=== PATIENT | male | born 1990 | race Caucasian/White ===

== ENCOUNTER 2016-12-09 23:32 | Emergency (ER) | payer SELFPAY ==
[2016-12-10 00:15] LABS: Hematocrit 45 % (42-52); Mean Corpuscular HGB Conc 33 g/dl (31-36); Mean Corpuscular Hemoglobin 31 pg (27-31); Mean Corpuscular Volume 94 fL (80-94); Mean Platelet Volume 7 um3 (7.4-10.4); Red Blood Count 4.79 10^6/ul (4.0-5.4); Red Cell Distribution Width 13 % (10.5-15); White Blood Count 8.2 10^3/ul (3.5-10.8)
[2016-12-10 00:29] LABS: ALT 21 U/L (7-52); Albumin 4.2 g/dL (3.2-5.2); Alkaline Phosphatase 35 U/L (34-104); Blood Urea Nitrogen 11 mg/dL (6-24); CO2 Carbon Dioxide 25 mmol/L (22-32); Calcium 9.2 mg/dL (8.6-10.3); Chloride 106 mmol/L (101-111); EGFR African American 103.3 (>60); EGFR Non-African American 80.3 (>60); Glucose 151 mg/dL (70-100); Sodium 140 mmol/L (133-145); Total Protein 7.2 g/dL (6.4-8.9)
[2016-12-10 00:41] LABS: Acetaminophen < 15 mcg/mL; Alcohol 23 mg/dL (<10); Salicylate < 2.50 mg/dL (<30)
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
[2016-12-10 00:57] LABS: Anion Gap 9 mmol/L (2-11)
[2016-12-10 01:07] VITALS: BP 136/67
== END 2016-12-10 01:10 ==
LOC: ED 23:32
DX: T40.5X1A Poisoning by cocaine, accidental (unintentional), initial encounter (principal); T40.7X1A Poisoning by cannabis (derivatives), accidental (unintentional), initial encounter; T51.91XA Toxic effect of unspecified alcohol, accidental (unintentional), initial encounter; Y92.9 Unspecified place or not applicable; F17.210 Nicotine dependence, cigarettes, uncomplicated; V89.2XXA Person injured in unspecified motor-vehicle accident, traffic, initial encounter; Y93.9 Activity, unspecified
CPT/HCPCS: 36415; 80053; 80320; 80329; 85025; 99283; G0480

== ENCOUNTER 2020-01-26 23:01 | Inpatient (IN) ==
[2020-01-27] MEDS ORDERED: NS 0.9% 1000 ml BAG 1,000 ML IV ONE ×2 (00:37→05:44)
[2020-01-27] MEDS ORDERED: Ondansetron 4 mg VIAL 2 MG/ML 2 ml VIAL IV ONE (00:37)
[2020-01-27 01:38] LABS: INR 1.02 (0.82-1.09)
[2020-01-27 01:51] LABS: Albumin 4.4 g/dL (3.2-5.2); Albumin/Globulin Ratio 1.5 (1-3); BUN/Creatinine Ratio 13.2 (8-20); C Reactive Protein 37.45 mg/L (<8.01); Calcium 9.5 mg/dL (8.6-10.3); EGFR African American 99.3 (>60); Globulin 2.9 g/dL (2-4); Potassium 3.6 mmol/L (3.5-5.0); Total Protein 7.3 g/dL (6.4-8.9)
[2020-01-27 01:56] LABS: ABS Basophils 0.1 10^3/ul (0-0.2); ABS Eosinophils 0.1 10^3/ul (0-0.6); ABS Lymphocytes 1.2 10^3/ul (1.0-4.8); ABS Monocytes 1.3 10^3/ul (0-0.8); ABS Neutrophils 10.8 10^3/ul (1.5-7.7); Eosinophil % 0.5 %; Hematocrit 45 % (42-52); Hemoglobin 16.1 g/dL (14.0-18.0); Lymphocyte % 8.8 %; Mean Corpuscular HGB Conc 36 g/dL (31-36); Mean Corpuscular Hemoglobin 31 pg (27-31); Mean Corpuscular Volume 87 fL (80-94); Mean Platelet Volume 7.7 fL (7.4-10.4); Nucleated Red Blood Cells % 0.1; Platelet Count 295 10^3/uL (150-450); Red Blood Count 5.13 10^6 /uL (4.18-5.48); Red Cell Distribution Width 13 % (10-15); White Blood Count 13.5 10^3/uL (3.5-10.8)
[2020-01-27 02:19] LABS: Urine Appearance Cloudy; Urine Bilirubin Negative (Negative); Urine Blood Negative (Negative); Urine Color Yellow; Urine Glucose Negative (Negative); Urine Ketones Trace (Negative); Urine Nitrite Negative (Negative); Urine Protein 2+(100 mg/dL) (Negative); Urine Specific Gravity 1.031 (1.010-1.030); Urine Urobilinogen Negative (Negative)
[2020-01-27] MEDS ORDERED: Iohexol 300 (CONTRAST) 10 ML SDV IV ONE (02:27)
[2020-01-27 02:36] LABS: Urine Bacteria Absent (Absent); Urine Red Blood Cell 2+(6-10/hpf) (Absent); Urine White Blood Cell 1+(6-10/hpf) (Absent)
[2020-01-27 02:44] LABS: Urine Benzodiazepine Screen None Detected (None Detect); Urine Cannabinoids Screen None Detected (None Detect); Urine Opiates Screen Presumptive Positive (None Detect)
[2020-01-27] MEDS ORDERED: cefTRIAXone 2 GM ADDV.VIAL 2 GM in NS 0.9% 100 ml BAG 100 ML IVPB ONE (04:40)
[2020-01-27] MEDS ORDERED: Vancomycin 1,000 MG in NS 0.9% 250 ml 250 ML IVPB SCH (06:00)
[2020-01-27] MEDS ORDERED: Ondansetron 4 mg VIAL 2 MG/ML 2 ml VIAL IV PRN (06:07)
[2020-01-27] MEDS ORDERED: NS 0.9% 1000 ml BAG 1,000 ML IV SCH (06:15)
[2020-01-27] MEDS ORDERED: Vancomycin 2000 MG X 1 dose IVPB ONE (06:30)
[2020-01-27] MEDS ORDERED: Vancomycin per Pharmacy 1 EA NOTE FOLLOW UP PRN (06:59)
[2020-01-27] MEDS ORDERED: Perflutren Lipid Microsphere 3 ML VIAL ONE (08:57)
[2020-01-27 13:05] LABS: Troponin I 0.07 ng/mL (<0.03)
[2020-01-27] MEDS: Vancomycin 1,000 MG in NS 0.9% 250 ml 250 ML IV SCH ×2 (13:33→20:15)
[2020-01-27] MEDS ORDERED: Heparin 5000 UNITS/ML 1 mL VIAL SUBCUT SCH (14:00)
[2020-01-27] MEDS: Enoxaparin 100 MG/ML SYR SUBCUT SCH (18:21)
[2020-01-27 18:25] LABS: Troponin I 0.07 ng/mL (<0.03)
[2020-01-28] MEDS: Vancomycin 1,000 MG in NS 0.9% 250 ml 250 ML IV SCH ×3 (02:30→11:00)
[2020-01-28] MEDS ORDERED: cefTRIAXone 1 gm/50 mL NS BAG 1 GM/50 ML BAG IVPB SCH (06:00)
[2020-01-28] MEDS: Enoxaparin 100 MG/ML SYR SUBCUT SCH ×2 (06:02→17:08)
[2020-01-28 06:59] LABS: ABS Basophils 0.1 10^3/ul (0-0.2); ABS Eosinophils 0.3 10^3/ul (0-0.6); ABS Lymphocytes 1.4 10^3/ul (1.0-4.8); ABS Monocytes 1.3 10^3/ul (0-0.8); ABS Neutrophils 9.1 10^3/ul (1.5-7.7); Eosinophil % 2.2 %; Hematocrit 41 % (42-52); Hemoglobin 14.5 g/dL (14.0-18.0); Lymphocyte % 11.6 %; Mean Corpuscular HGB Conc 35 g/dL (31-36); Mean Corpuscular Hemoglobin 31 pg (27-31); Mean Corpuscular Volume 88 fL (80-94); Mean Platelet Volume 7.3 fL (7.4-10.4); Nucleated Red Blood Cells % 0.1; Platelet Count 266 10^3/uL (150-450); Red Blood Count 4.68 10^6 /uL (4.18-5.48); Red Cell Distribution Width 13 % (10-15); White Blood Count 12.2 10^3/uL (3.5-10.8)
[2020-01-28 07:06] LABS: INR 1.26 (0.82-1.09)
[2020-01-28 07:17] LABS: BUN/Creatinine Ratio 10.1 (8-20); Calcium 8.5 mg/dL (8.6-10.3); EGFR African American 86.9 (>60); EGFR Non-African American 71.8 (>60); HDL Cholesterol 48.6 mg/dL; Potassium 4.1 mmol/L (3.5-5.0)
[2020-01-28] MEDS ORDERED: Vancomycin Trough Check NOTE FOLLOW UP ONE (07:30)
[2020-01-28 07:42] LABS: TSH Ultra Thyroid Stim Horm 4.7 mcIU/mL (0.34-5.60)
[2020-01-28 07:56] LABS: Vancomycin Trough 17.3 mcg/mL
[2020-01-28] MEDS ORDERED: Vancomycin 1,000 MG in NS 0.9% 250 ml 250 ML IV SCH (10:30)
[2020-01-28] MEDS ORDERED: NS 0.9% 250 ml 250 ML IV SCH (12:00)
[2020-01-28] MEDS ORDERED: Warfarin - No Order Today **NOTE FOLLOW UP ONE (17:00)
[2020-01-28] MEDS: Warfarin per PHARMACY **NOTE FOLLOW UP SCH (17:09)
[2020-01-28] MEDS ORDERED: NS 0.9% 500 ml BAG 500 ML IV SCH (19:00)
[2020-01-29] MEDS: Enoxaparin 100 MG/ML SYR SUBCUT SCH (06:09)
[2020-01-29 07:55] LABS: INR 1.51 (0.82-1.09)
[2020-01-29 08:25] LABS: Albumin 3.1 g/dL (3.2-5.2); CO2 Carbon Dioxide 24 mmol/L (22-32); Calcium 8.3 mg/dL (8.6-10.3); Chloride 102 mmol/L (101-111); Sodium 132 mmol/L (135-145)
[2020-01-29 08:31] LABS: ALT 65 U/L (7-52); Albumin/Globulin Ratio 1.3 (1-3); Alkaline Phosphatase 51 U/L (34-104); BUN/Creatinine Ratio 9.9 (8-20); Blood Urea Nitrogen 10 mg/dL (6-24); EGFR African American 104.9 (>60); EGFR Non-African American 86.7 (>60); Globulin 2.4 g/dL (2-4); Glucose 87 mg/dL (70-100); Total Protein 5.5 g/dL (6.4-8.9)
[2020-01-29 08:43] LABS: Anion Gap 6 mmol/L (2-11)
[2020-01-29 10:16] LABS: Hematocrit 39 % (42-52); Hemoglobin 13.4 g/dL (14.0-18.0); Mean Corpuscular HGB Conc 34 g/dL (31-36); Mean Corpuscular Hemoglobin 30 pg (27-31); Mean Corpuscular Volume 89 fL (80-94); Mean Platelet Volume 7.3 fL (7.4-10.4); Platelet Count 267 10^3/uL (150-450); Red Blood Count 4.43 10^6 /uL (4.18-5.48); Red Cell Distribution Width 13 % (10-15); White Blood Count 9.4 10^3/uL (3.5-10.8)
[2020-01-29 10:35] LABS: Potassium Redraw 3.7 mmol/L (3.5-5.0)
[2020-01-29] MEDS: Warfarin per PHARMACY **NOTE FOLLOW UP SCH (17:39)
[2020-01-30 09:58] LABS: BUN/Creatinine Ratio 7.8 (8-20); Calcium 8.6 mg/dL (8.6-10.3); EGFR African American 102.6 (>60); EGFR Non-African American 84.8 (>60); Potassium 3.6 mmol/L (3.5-5.0)
[2020-01-30 09:59] LABS: INR 1.68 (0.82-1.09)
[2020-01-30] MEDS: Warfarin per PHARMACY **NOTE FOLLOW UP SCH (17:11)
[2020-01-31 10:11] LABS: INR 1.84 (0.82-1.09)
[2020-01-31] MEDS ORDERED: Digoxin IV 0.5 MG/2 ML AMP (0.25 MG/ML) IV SLOW PU ONE (10:52)
[2020-01-31 16:00] VITALS: BP 114/60
== END 2020-01-31 16:50 | disposition home or self-care (01) | DRG 699 ==
LOC: ED 23:01 → MED 01-27 05:53
PROVIDERS: ADMIT Hospitalist; ATTEND Internal Medicine

== ENCOUNTER 2020-07-29 04:12 | Observation (INO) ==
[2020-07-29 05:06] LABS: ABS Basophils 0.1 10^3/ul (0-0.2); ABS Eosinophils 0.5 10^3/ul (0-0.6); ABS Lymphocytes 1.9 10^3/ul (1.0-4.8); ABS Monocytes 0.6 10^3/ul (0-0.8); ABS Neutrophils 4.9 10^3/ul (1.5-7.7); Eosinophil % 6.4 %; Hematocrit 39 % (42-52); Hemoglobin 13.6 g/dL (14.0-18.0); Lymphocyte % 24.2 %; Mean Corpuscular HGB Conc 35 g/dL (31-36); Mean Corpuscular Hemoglobin 30 pg (27-31); Mean Corpuscular Volume 88 fL (80-94); Mean Platelet Volume 7.9 fL (7.4-10.4); Nucleated Red Blood Cells % 0.2; Platelet Count 343 10^3/uL (150-450); Red Blood Count 4.48 10^6 /uL (4.18-5.48); Red Cell Distribution Width 14 % (10-15); White Blood Count 7.9 10^3/uL (3.5-10.8)
[2020-07-29 05:25] LABS: ALT 61 U/L (7-52); AST 48 U/L (13-39); Albumin 3.6 g/dL (3.2-5.2); Albumin/Globulin Ratio 1.2 (1-3); Alkaline Phosphatase 54 U/L (34-104); Anion Gap 7 mmol/L (2-11); BUN/Creatinine Ratio 15.1 (8-20); Blood Urea Nitrogen 19 mg/dL (6-24); CO2 Carbon Dioxide 22 mmol/L (22-32); Calcium 8.7 mg/dL (8.6-10.3); Chloride 104 mmol/L (101-111); EGFR African American 81.3 (>60); EGFR Non-African American 67.2 (>60); Globulin 2.9 g/dL (2-4); Glucose 113 mg/dL (70-100); Potassium 4.3 mmol/L (3.5-5.0); Sodium 133 mmol/L (135-145); Total Protein 6.5 g/dL (6.4-8.9)
[2020-07-29 05:31] LABS: Influenza A Molecular Negative (Negative); Influenza B Molecular Negative (Negative)
[2020-07-29 05:33] LABS: Rapid COVID-19 Molecular Undetected (Undetected)
[2020-07-29 05:38] LABS: Troponin I 0.04 ng/mL (<0.03)
[2020-07-29] MEDS ORDERED: Furosemide 40 mg/4 ml IV VIAL IV SLOW PU ONE (05:52)
[2020-07-29 06:09] LABS: PCO2 Arterial 27 mmHg (35-45); PO2 Arterial 80 mmHg (80-100)
[2020-07-29] MEDS ORDERED: oxyCODONE/Acetamin 5/325 mg TAB PO PRN (06:10)
[2020-07-29 06:47] LABS: Digoxin 0.4 ng/ml (0.8-2.0)
[2020-07-29 10:39] LABS: Urine Benzodiazepine Screen None Detected (None Detect); Urine Cannabinoids Screen None Detected (None Detect); Urine Opiates Screen None Detected (None Detect)
[2020-07-29 12:02] LABS: Troponin I 0.03 ng/mL (<0.03)
[2020-07-29 15:53] LABS: Troponin I 0.03 ng/mL (<0.03)
[2020-07-29] MEDS ORDERED: Furosemide 20 mg/2 ml IV VIAL IV SLOW PU ONE (16:47)
[2020-07-29] MEDS: Benzocaine/Menthol LOZ PO PRN (21:49)
[2020-07-30 07:10] LABS: BUN/Creatinine Ratio 20.9 (8-20); Calcium 8.5 mg/dL (8.6-10.3); EGFR African American 90.3 (>60); EGFR Non-African American 74.7 (>60); Potassium 3.8 mmol/L (3.5-5.0)
[2020-07-30] MEDS: Benzocaine/Menthol LOZ PO PRN ×2 (11:21→20:30)
[2020-07-31 03:29] VITALS: BP 105/82
== END 2020-07-31 04:20 | disposition left against medical advice (07) | DRG 194 ==
LOC: ED 04:12 → MED 11:24 → INTOOBSV 11:53 → MED 11:53
PROVIDERS: ADMIT Internal Medicine; ATTEND Internal Medicine